=== PATIENT | male | born 1995 | race Caucasian/White ===

== ENCOUNTER 2021-07-17 09:59 | Emergency (ER) | payer OTHER ==
[~2021-07-17] VITALS: Ht 195.6 cm; Wt 100.0 kg
[2021-07-17 10:02] VITALS: BP 150/78; TEMP 97.5
[2021-07-17 12:00] VITALS: PULSE 60
== END 2021-07-17 12:00 | disposition home or self-care (01) ==
LOC: COL.ER 09:59
DX: S62.634A Displaced fracture of distal phalanx of right ring finger, initial encounter for closed fracture (principal); W20.8XXA Other cause of strike by thrown, projected or falling object, initial encounter; Y99.0 Civilian activity done for income or pay

== ENCOUNTER 2021-07-19 14:53 | Outpatient (RCR) | payer OTHER | END 2021-08-31 14:33 | disposition home or self-care (01) | LOC: WSOH 14:53 | DX: S62.664A Nondisplaced fracture of distal phalanx of right ring finger, initial encounter for closed fracture (principal); S60.041A Contusion of right ring finger without damage to nail, initial encounter; F41.8 Other specified anxiety disorders; Y99.0 Civilian activity done for income or pay ==